=== PATIENT | female | born 1970 | race Caucasian/White ===

== ENCOUNTER 2018-07-24 01:46 | Outpatient (CLI) | payer OTHER, SELFPAY ==
--- NOTE | 2018-07-24 12:19 | DI.MAMMO_ITS ---
SYMPTOM/DIAGNOSIS: SCREENING, Z12.31 MAMMOGRAMS: Mammograms were interpreted according to the usual protocol including computer analysis with CAD system, tomosynthesis and C view imaging. The breast tissue is heterogeneously radiodense which lowers the sensitivity of the study. There is no dominant mass. When compare with the previous examination,the possibility of interval development of a small area of nodularity in the medial portion of the right breast is raised. This finding is suggested only on the craniocaudad projection. Further assessment of this patient with a craniocaudad compression spot film and ultrasound is recommended for further review. IMPRESSION: Category 0, question interval development of a small right breast nodule. Follow up evaluation with compression spot film and ultrasound is suggested. Breast density, category C. MQSA ASSESSMENT OF FINDINGS: Incomplete: Needs additional imaging evaluation. Category 0. Patient will receive a letter notifying them of these results. Bi-RADS category C. The breasts are heterogeneously dense, which may obscure small masses.
== END 2018-07-24 02:06 ==
PROVIDERS: PCP Specialist/Technologist Athletic Trainer; Visit Provider Specialist/Technologist Athletic Trainer
DX: Z12.31 Encounter for screening mammogram for malignant neoplasm of breast (principal); R92.8 Other abnormal and inconclusive findings on diagnostic imaging of breast
CPT/HCPCS: 77063; 77067

== ENCOUNTER 2018-08-07 01:37 | Outpatient (CLI) | payer OTHER, SELFPAY ==
--- NOTE | 2018-08-07 09:14 | DI.COMBO_ITS ---
SYMPTOM/DIAGNOSIS: F/U MAMMO, RT BREAST NODULE RIGHT BREAST ADDITIONAL VIEWS AND RIGHT BREAST ULTRASOUND: Additional images are interpreted according to the usual protocol including tomosynthesis and 2D imaging. Spot compression CC and MLO views were performed of the superior and posterior aspects of the right breast for a small area of nodularity. The margins are circumscribed. The findings likely represent an intramammary lymph node. Right breast ultrasound shows a small cyst in the upper inner quadrant 4 cm. from the nipple which does not correspond to the mammographic nodule. IMPRESSION: Category 2, negative mammogram with benign findings. Yearly screening mammography is recommended. SA ASSESSMENT OF FINDINGS: Negative with benign findings. Category 2. Patient will receive a letter notifying them of these results. Bi-RADS category C. The breasts are heterogeneously dense, which may obscure small masses.
== END 2018-08-07 01:57 ==
PROVIDERS: PCP Specialist/Technologist Athletic Trainer; Visit Provider Nurse Practitioner Women's Health
DX: Z12.31 Encounter for screening mammogram for malignant neoplasm of breast (principal); R92.8 Other abnormal and inconclusive findings on diagnostic imaging of breast; R59.0 Localized enlarged lymph nodes; N60.01 Solitary cyst of right breast
CPT/HCPCS: 76642; 77063; 77067

== ENCOUNTER 2019-05-05 18:18 | Outpatient (REF) | payer OTHER, SELFPAY ==
[2019-05-05 20:51] LABS: TSH 3.44 uIU/mL (0.36-3.74)
[2019-05-05 21:05] LABS: Vitamin D 25 Total 24.5 ng/ml (30-100)
== END 2019-05-05 18:38 ==
LOC: NCHCN 18:18
PROVIDERS: PCP Specialist/Technologist Athletic Trainer; Visit Provider Nurse Practitioner Family
DX: R45.4 Irritability and anger (principal); R42 Dizziness and giddiness; F32.9 Major depressive disorder, single episode, unspecified
CPT/HCPCS: 82306; 84443

== ENCOUNTER 2019-08-26 01:58 | Outpatient (CLI) | payer OTHER, SELFPAY ==
--- NOTE | 2019-08-26 13:06 | DI.MAMMO_ITS ---
EXAM: MG MAMMO SCREENING CLINICAL HISTORY: SCREENING, Z12.31 TECHNIQUE: Mammograms were interpreted according to the usual protocol including computer analysis w [employer] CAD system, tomosynthesis and C-view imaging. COMPARISON: Current examination is compared with previous examinations including July 2018 FINDINGS: The breasts are heterogeneously dense. No dominant mass or clumped microcalcification is identified in either breast. Current examination is compared with previous examinations including July 2018 and there has been no gross interval change in appearance in comparison with the previous studies. IMPRESSION: No specific evidence of malignancy at this time. Routine screening examinations are suggested at yea rly intervals in this age group according the ACS/ACR guidelines. Category 1, breast density categor y C. BI-RADS Cat 1 - Negative Breast Density - Category C - Heterogeneously dense
== END 2019-08-26 02:18 ==
PROVIDERS: PCP Nurse Practitioner Family; Visit Provider Nurse Practitioner Women's Health
DX: Z12.31 Encounter for screening mammogram for malignant neoplasm of breast (principal)
CPT/HCPCS: 77063; 77067

== ENCOUNTER 2020-10-11 02:02 | Outpatient (CLI) | payer OTHER, SELFPAY ==
--- NOTE | 2020-10-11 | DI.MAMMO_ITS ---
EXAM: MAMMO SCREENING CLINICAL HISTORY: SCREENING, Z12.31. TECHNIQUE: Bilateral full field digital CC and MLO mammographic images were obtained with 3D tomosyn thesis and utilizing computer aided detection (CAD). COMPARISON: Prior mammograms dating back to 2015, the most recent being August 2019. Prior limited right breast ultrasound performed 08/07/2018 was reviewed. FINDINGS: Fibroglandular tissue is again noted be moderately dense, this decreasing the sensitivity of the mamm ogram for finding hidden underlying lesions. In the right breast there is a 16 x 11 millimeter noncalcified lobulated nodule located 8 cm in from the nipple, slightly lateral of center. In addition, there is a subtle suggestion of a possible 2nd similar size nodule located more medially, both of these findings best evident on 3D MLO imaging. Br east ultrasound recommended There are no malignant-appearing microcalcification groups in these regions or elsewhere in either br east. There is no significant architectural distortion nor skin thickening-retraction. IMPRESSION: Right breast nodules. Right breast additional mammographic views plus breast ultrasound recommended. BI-RADS Category 0 - Assessment Incomplete: Need additional imaging evaluation Breast Density - Category C - Heterogeneously dense Breast density Category C or D implies that the patient has dense breast tissue. Dense breast tissue can make it harder to find cancer on a mammogram. Dense breast tissue is also associated with an incr eased risk of breast cancer. This information about the result of the mammogram report was provided to the patient to raise their awareness. Use this report when you speak with the patient about their risks for breast cancer, which includes their family history. At that time, you may recommend additional screening tests (Ultrasoun d or MRI) as these tests may add significant information. A negative radiographic report should not delay biopsy if a dominant or clinically suspicious mass is present. Up to ten percent of cancers are not identified on mammography. A negative report may reinforce clinical impression. Adenosis and dense breasts may obscure an underlying neoplasm. False positive reports average 6 to 10%. Patient will receive a letter notifying them of these results.
== END 2020-10-11 02:22 ==
PROVIDERS: PCP Nurse Practitioner Family; Visit Provider Obstetrics & Gynecology
DX: Z12.31 Encounter for screening mammogram for malignant neoplasm of breast (principal); R92.8 Other abnormal and inconclusive findings on diagnostic imaging of breast
CPT/HCPCS: 77063; 77067

== ENCOUNTER 2020-10-14 09:37 | Outpatient (REF) | payer OTHER, SELFPAY ==
[2020-10-14 15:58] LABS: Calculated LDL 152 mg/dL (<100); Cholesterol 232 mg/dL (<200); Glucose 103 mg/dL (74-106); HDL Cholesterol 67 mg/dL (40-60); Triglyceride 69 mg/dL (<150)
== END 2020-10-14 09:38 | disposition home or self-care (01) ==
LOC: NCHCN 09:37
PROVIDERS: PCP Nurse Practitioner Family; Visit Provider Nurse Practitioner Family
DX: Z00.00 Encounter for general adult medical examination without abnormal findings (principal)
CPT/HCPCS: 80061; 82947

== ENCOUNTER 2020-11-02 00:59 | Outpatient (CLI) | payer OTHER, SELFPAY ==
--- NOTE | 2020-11-02 | DI.US_ITS ---
Exam(s) US NEEDLE LOCAL BREAST WO RAD EXAM: ULTRASOUND GUIDED CORE BX OF RT BREAST MASS COMPARISON: No exams were available for comparison TECHNIQUE: Ultrasound performed using standard protocol. FINDINGS: Sonography was provided for Dr. Rose during the performance of a right breast biopsy. Please ref er to the procedure report for complete details. DATA REPOSITORY:
--- NOTE | 2020-11-02 09:20 | BREAST_PTH ---
PATIENT: Kristan Scruggs LOC: [facility] U#:[id number] AGE/SX: 50/F ROOM: RE11/02/[address]: Mariana Rose MD : 1970 BED: DIS: 11/02/2020 SPEC #: [id number] RECD: 11/02/20 13:03 STATUS: MICHAEL NOBLE #: [id number] ABHI: 11/02/20 09:[address]: Mariana Rose DEPT: Surgical Specimen RECD BY: Trinh John ENTERED: 11/02/20 13:04 SP TYPE: Breast OTHR DR: Sheeba Avila Tissues: 1 - BREAST BX NEEDLE Procedures: GROSS AND MICRO LEVEL 4 Comments: [id number]
--- NOTE | 2020-11-02 09:57 | HPE_ITS ---
Date of service: 11/02/20 Time of Service: 09:00 Assessment and Plan Assessment and plan (1) Mass of right breast on mammogram: Status: Acute Assessment and plan: Ms. Scruggs is a pleasant female who underwent mammogram and ultrasound. She was noted to have a mass in her right breast on mammogram. Ultrasound showed a mass at 9:00. Although most likely benign the radiologist did not feel that they could exclude malignancy. Ultrasound-guided biopsy was recommended. She was also noted to have a small fibroadenoma in the left breast at the 3 o'clock position. They recommend follow-up in 6 months for this. Ultrasound-guided core needle biopsy was discussed with the patient. Risks, benefits and complications were reviewed. Questions were entertained and answered to her satisfaction and she wished to proceed. Complications include but are not limited to bleeding, infection, bruising, need for further biopsy. Please see operative note I spent 30 minutes in reviewing the record, seeing the patient and documenting in the medical record. History of Present Illness Narrative: Mrs Scruggs is a pleasant 50-year-old female who underwent a routine mammogram followed by an ultrasound for a lesion in her right breast. I reviewed the ultrasound images prior to seeing the patient over in radiology. EXAM: US BREAST RT COMPLETE CLINICAL HISTORY: BREAST MASS TECHNIQUE: Complete ultrasound of the right breast was performed including all 4 quadrants, the retroareolar region, and the ipsilateral axilla. COMPARISON: Prior mammograms were reviewed. FINDINGS: At the 9 o'clock position there is a solid lobulated nodule measuring approximately 1.8 x 0.8 cm, correspond to the finding on the mammogram. Exhibits neutral and slightly decreased through transmission. May represent fibroadenoma but cannot exclude malignancy. Ultrasound-guided biopsy is recommended No other significant focal findings in the 4 quadrants nor in the retroareolar region No ipsilateral axillary adenopathy. IMPRESSION: At the 9 o'clock position of the right breast there is a solid lobulated nodule which should undergo ultrasound-guided core biopsy. At the 3 o'clock position of the opposite-left breast there is a more benign- appearing finding which is either microcyst or smaller fibroadenoma. This can be followed in 6 months. Appropriate follow-up is US guided core biopsy of the right breast 9 o'clock position nodule. Findings and recommendations were discussed by myself with the patient today. The patient does not have any family history of breast cancer that she is aware of. She has not noted any nipple discharge or changes in the skin. She tells me that her breasts are lumpy and she has a hard time doing self breast exams because of this. She has never had biopsies prior to this. Review of Systems Constitutional Constitutional: Denies fever(s), Denies headache(s) and Denies weight loss Eyes Eyes: Denies change in vision ENT Ears, Nose, Mouth, and Throat: Denies change in voice, Denies headache(s) and Denies hoarseness Cardiovascular Cardiovascular: Denies chest pain, Denies irregular heart rhythm, Denies palpitations and Denies dyspnea Respiratory Respiratory: Denies cough and Denies dyspnea Gastrointestinal Gastrointestinal: Reports system reviewed and no additional complaints, except as documented Genitourinary Genitourinary: Reports system reviewed and no additional complaints, except as documented Musculoskeletal Musculoskeletal: Reports system reviewed and no additional complaints, except as documented Integumentary/Breasts Skin/Breast: Reports as per HPI Neurologic Neurologic: Denies headache(s) Endocrine Endocrine: Denies palpitations [facility] Medical History (Updated 11/02/20 @ 10:01 by Mariana Rose MD) Contact allergic reaction Depression Dizziness Epistaxis Exertional shortness of breath Foot pain Heart murmur Hemangioma of liver Irritability Neuropathic pain Overweight Rosacea Shoulder pain Skin tag Social History Smoking risk assessment performed?: No Meds Allergies and Home Medications Allergies Allergy/AdvReac Type Severity Reaction Status Date / Time pineapple Allergy Mild none noted Verified 09/29/20 14:25 on referral Home Medications Medication Instructions Recorded Confirmed Type meclizine 25 mg tablet 25 mg PO TID 09/29/20 History metronidazole 0.75 % topical cream 1 applic TOPICAL BID 09/29/20 History Exam Const General: cooperative, comfortable and no acute distress Orientation: alert and oriented x3 HENMT Head: normocephalic and atraumatic Chest Chest: normal inspection of the chest Breast inspection: normal inspection of the breasts Breast palpation: normal palpation of the breasts and no axillary lymphadenopathy
--- NOTE | 2020-11-02 10:03 | W.PM.OP ---
Date of service: 11/02/20 Time of Service: 09:30 Operative Note Operative Note DATE OF PROCEDURE: 11/02/20 PRE-OP DIAGNOSIS: Right Breast mass POST-OP DIAGNOSIS: same PROCEDURE: Core needle biopsy of right Breast mass under US guidence SURGEON: Mariana Rose ANESTHESIA TYPE: Local By Surgeon (1% Lidocaine with epi) ESTIMATED BLOOD LOSS: 3 PATHOLOGY: other (Core needle tissue) COMPLICATIONS: None Patient was transported to: no change Patient's condition: stable Procedure Description: After informed consent was obtained the patient was placed in a supine position. Us was done of the right Breast and the lesion was localized by the US tech. The skin was cleaned with alcohol and infiltrated with the above local anesthetic. The skin was then prepped. An incision was made with an 11 blade. Using a 14 gauge core needle 2 specimens were removed under US guidence and placed on telfa and placed in formalin. The skin was cleaned and dried and a band aid was applied. The patient tolerated the procedure well and there were no immediate complications.
== END 2020-11-02 01:19 ==
PROVIDERS: PCP Nurse Practitioner Family; Visit Provider Surgery
DX: N64.89 Other specified disorders of breast (principal)
CPT/HCPCS: 19083; 88305; 76942

== ENCOUNTER 2021-10-26 01:57 | Outpatient (CLI) | payer OTHER, SELFPAY ==
--- NOTE | 2021-10-26 15:15 | DI.MAMMO_ITS ---
Exam(s) US BREAST LT COMPLETE MG MAMMO SCREENING EXAM: MG MAMMO SCREENING CLINICAL HISTORY: SCREENING, Z12.39, PREVENTATIVE CARE, Z00.00. TECHNIQUE: Craniocaudal and mediolateral oblique Full Field Digital Mammography views with Computer Aided Diagnosis followed by Tomosynthesis and breast ultrasound. COMPARISON: US US BREAST LT COMPLETE from 10/13/2020 US US BREAST LT COMPLETE from 04/29/2021 US US BREAST LT COMPLETE from 10/26/2021 Mammograms from 2015 through 2020 FINDINGS: Mammography/Tomosynthesis: Left breast: Masses/Architectural Distortion: None seen. Microcalcifictions: No suspicious pleomorphic-type are seen. Skin Thickening/Nipple Retraction: None. Right breast: Masses/Architectural Distortion: Stable circumscribed nodule adjacent biopsy clip upper-outer quadran t. Microcalcifictions: No suspicious pleomorphic-type are seen. Skin Thickening/Nipple Retraction: None. Left breast US: Echotexture: Normal appearance of the glandular tissue. Shadowing: No suspicious foci. Cyst: None. Solid lesions: smoothly marginated ovoid, hypoechoic nodule measuring 8 x 3 by 5 millimeters which m ay have decreased in size slightly when compared the previous exam. Ductal dilation: None. IMPRESSION: 1. No evidence of malignancy is noted. 2. Unless there is more urgent need, follow-up screening mammography is recommended in 1 year 3. The findings were discussed with the patient on the date of the examination. BI-RADS Category 2 - Benign Findings Breast Density - Category C - Heterogeneously dense Breast density category C or D implies that the patient has dense breast tissue. Dense breast tissue is very common and is not abnormal but dense breast tissue can make it harder to find cancer on a ma mmogram. Also, dense breast tissue may increase their breast cancer risk. This information about the result of the mammogram report was provided to the patient to raise their awareness. Use this report when you speak with the patient about their risks for breast cancer, which includes their family hist ory. At that time, you may recommend for more screening tests (Ultrasound or MRI) as they might be us eful based on their risk. A negative radiographic report should not delay biopsy if a dominant or clinically suspicious mass is present. Up to ten percent of cancers are not identified on mammography. A negative report may reinforce clinical impression. Adenosis and dense breasts may obscure an underlying neoplasm. False positive reports average 6 to 10%. Patient will receive a letter notifying them of these results.
== END 2021-10-26 02:17 ==
PROVIDERS: PCP Nurse Practitioner Family; Visit Provider Nurse Practitioner Family
DX: Z00.00 Encounter for general adult medical examination without abnormal findings (principal); Z12.31 Encounter for screening mammogram for malignant neoplasm of breast; N60.82 Other benign mammary dysplasias of left breast
CPT/HCPCS: 77063; 77067

== ENCOUNTER 2021-11-09 08:47 | Outpatient (REF) | payer OTHER, SELFPAY ==
[2021-11-09 16:02] LABS: Calculated LDL 167 mg/dL (<100); Cholesterol 263 mg/dL (<200); Glucose 96 mg/dL (74-106); HDL Cholesterol 85 mg/dL (40-60); Triglyceride 55 mg/dL (<150)
== END 2021-11-09 08:48 | disposition home or self-care (01) ==
LOC: NCHCN 08:47
PROVIDERS: PCP Nurse Practitioner Family; Visit Provider Nurse Practitioner Family
DX: Z00.00 Encounter for general adult medical examination without abnormal findings (principal); Z13.220 Encounter for screening for lipoid disorders; Z13.1 Encounter for screening for diabetes mellitus
CPT/HCPCS: 80061; 82947

== ENCOUNTER 2022-08-30 08:49 | Outpatient (CLI) | payer BC, SELFPAY ==
[2022-08-30 11:26] LABS: D-Dimer 299 ng/mlFEU (<500)
== END 2022-08-30 08:50 | disposition home or self-care (01) ==
PROVIDERS: PCP Nurse Practitioner Family; Visit Provider Nurse Practitioner Family
DX: R22.31 Localized swelling, mass and lump, right upper limb (principal)
CPT/HCPCS: 36415; 85379

== ENCOUNTER 2022-10-27 00:22 | Outpatient (CLI) | payer BC, SELFPAY ==
--- NOTE | 2022-10-27 15:19 | DI.MAMMO_ITS ---
Exam(s) MAMMO SCREENING EXAM: MAMMO SCREENING CLINICAL HISTORY: SCREENING, Z12.31 TECHNIQUE: Mammograms were interpreted according to the usual protocol including computer analysis w [employer] CAD system, tomosynthesis and C-view imaging. COMPARISON: 2015 through 2021 FINDINGS: The breasts are composed of heterogeneously dense fibroglandular densities, Breast Density category C . No suspicious masses or suspicious microcalcifications are seen. Stable areas of circumscribed nodul arity in the upper outer quadrant and upper inner quadrant. Biopsy marker clip in upper outer quadra nt adjacent to the nodule.. No skin thickening or abnormal axillary lymph nodes are seen. There has been no significant change from prior exams. IMPRESSION: BI-RADS Cat 2 - Benign Findings Breast Density Category C, heterogeneously Dense. The mammogram demonstrates the patient's breast tissue is dense. Dense breast tissue is very common a nd is not abnormal but dense breast tissue can make it harder to find cancer on a mammogram. Also, de nse breast tissue may increase breast cancer risk. This information about the result of the mammogram report was provided to the patient to raise their awareness. Use this report when you speak with the patient about their risks for breast cancer, which includes their family history. At that time, you may recommend additional screening tests (Ultrasound or MRI) as they might be useful based on their r isk. A negative radiographic report should not delay biopsy if a dominant or clinically suspicious mass is present. Up to ten percent of cancers are not identified on mammography. A negative report may reinforce clinical impression. Adenosis and dense breasts may obscure an underlying neoplasm. False positive reports average 6 to 10%.
== END 2022-10-27 00:42 ==
LOC: DI 00:22
PROVIDERS: PCP Nurse Practitioner Family; Visit Provider Obstetrics & Gynecology
DX: Z12.31 Encounter for screening mammogram for malignant neoplasm of breast (principal)
CPT/HCPCS: 77063; 77067

== ENCOUNTER 2024-12-26 22:53 | Outpatient (REF) | payer BC, SELFPAY ==
[2024-12-26 19:40] LABS: Abs Immature Grans 0.02 10^3/uL (0.0-0.06); Absolute Basophil Count 0.06 10^3/uL (0.0-0.2); Absolute Eosinophil Count 0.12 10^3/uL (0.0-0.7); Absolute Lymphocyte Count 2.43 10^3/uL (1.2-3.4); Absolute Monocyte Count 0.48 10^3/uL (0.1-0.8); Absolute Neutrophil Count 5.23 10^3/uL (1.2-6.7); Basophils % 0.7 %; Eosinophils % 1.4 %; HCT 44.5 % (36.0-46.0); HGB 14.5 g/dL (11.2-15.7); Immature Grans % 0.2 %; Lymphocytes % 29.1 %; MCH 31.9 pg (27.0-33.0); MCHC 32.6 % (32.0-36.0); MCV 98 fL (80-95); MPV 11.1 fL (8.0-11.0); Monocytes % 5.8 %; Neutrophils % 62.8 %; Platelet Count 232 10^3/uL (130-400); RBC 4.55 10^6/uL (3.93-5.22); RDW 13.6 % (11.7-14.6); RDW-SD 50.1 fL; WBC 8.34 10^3/uL (4.4-10.8)
[2024-12-26 19:56] LABS: Hemoglobin A1C 5.3 % (<5.7)
[2024-12-26 20:22] LABS: ALT 35 U/L (14-59); AST 22 U/L (15-37); Albumin 4.2 g/dL (3.4-5.0); Alkaline Phosphatase 106 U/L (46-116); Anion Gap 7.8 mmol/L (3-11); BUN 9 mg/dL (7-18); Bilirubin, Total 0.4 mg/dL (0.2-1.0); CO2 27.2 mmol/L (21.0-32.0); CREATININE 0.6 mg/dL (0.55-1.02); Calculated LDL 189 mg/dL (<100); Chloride 104 mmol/L (98-107); Cholesterol 299 mg/dL (<200); Estimated GFR 105.94 (mL/min/1.73m2); Glucose 99 mg/dL (74-106); HDL Cholesterol 89 mg/dL (>or=50); Potassium 4.1 mmol/L (3.5-5.1); Sodium 139 mmol/L (136-145); Total Protein 7.6 g/dL (6.4-8.2); Triglyceride 106 mg/dL (<150); Vitamin D 25 Total 22 ng/mL (30-100)
[2024-12-29 10:20] LABS: Hepatitis C Ab w Rflx HCV PCR Negative (Negative)
== END 2024-12-26 22:54 | disposition home or self-care (01) ==
LOC: NCHCN 22:53
PROVIDERS: Visit Provider Family Medicine
DX: Z00.00 Encounter for general adult medical examination without abnormal findings (principal)
CPT/HCPCS: 80053; 80061; 82306; 86803; 83036; 84443; 85025

== ENCOUNTER 2025-03-30 10:49 | Day surgery (SDC) | payer BC, SELFPAY ==
[2025-03-30 10:55] VITALS: BP 144/69; PULSE 71; RESP 20; TEMP 36.4; O2SAT 100
[2025-03-30] MEDS: Lactated Ringers 500 ML 80 ML IV (11:20)
--- NOTE | 2025-03-30 11:46 | ANES.PREOP_ITS ---
General Info Date of Service Date Performed: 03/30/25 Height: 5 ft 1 in Weight: 71.9 kg Body Mass Index (BMI): 29.9 Surgical Procedure: Operation Date: 03/30/25 12:05 Proposed Procedure Side Surgeon p Colonoscopy Dipti Padilla MD Meds Allergies and Home Medications Allergies Allergy/AdvReac Type Severity Reaction Status Date / Time pineapple Allergy Intermediate lips and Verified 03/30/25 11:07 tongue sometimes tingling Home Medication ?Medication ?Instructions ?Recorded meclizine 25 mg tablet 25 mg PO TID 09/29/20 Held on 03/27/25. Instructions: Pt Stopped/Never Started metronidazole 0.75 % topical cream 1 applic topical BI D 09/29/20 [id number] fumarate 18 1 tab-cap PO DAILY 01/31 12/24 mg-FA 600 mcg-vit K 40 mcg capsule (Multi For Her) bisacodyl 5 mg tablet,delayed 5 mg PO ONCE colonscopy bowel prep 03/04/25 release (Dulcolax (bisacodyl)) #4 tabs polyethylene glycol 3350 17 238 g PO ONCE colonoscopy prep 03/04/25 gram/dose oral powder #238 grams Current Visit Medications: Current Medications Generic Name Dose Route Start Last Admin Trade Name Freq PRN Reason Stop Dose Admin Ringer's Solution 500 mls @ 80 mls/hr 03/30/25 10:00 03/30/25 11:20 IV 04/29/25 09:59 80 mls/hr PREOP CAR Administration IV Miscellaneous Supplies 1 each 03/30/25 06:00 Iv Access IV 03/30/25 23:59 DIRECTED CAR Sodium Biphosphate/Sodium Phosphate 133 - 266 ml 03/30/25 06:00 Na Phosphate Enema-Adult 133 Ml Btl ME 03/30/25 23:59 PRN PRN Sodium Chloride 0 ml 03/30/25 06:00 Normal Saline Flush 10 Ml Syr IV 03/30/25 23:59 PRN PRN Sodium Chloride 0 ml 03/30/25 06:00 Normal Saline 10 Ml Vial IJ 03/30/25 23:59 DIRECTED PRN Sterile Water 0 ml 03/30/25 06:00 Water,Injection,Sterile 10 Ml Vial IJ 03/30/25 23:59 DIRECTED PRN PFSH Active Problems Active Problems: Problem Status Onset Code Hyperlipidemia Acute E78.5 Positive colorectal cancer screening using Cologuard test Acute R19.5 Mass of right breast on mammogram Acute N63.10 Medical History Medical History Depression Heart murmur Overweight Hemangioma of liver Skin tag Rosacea Contact allergic reaction Neuropathic pain Dizziness Irritability Epistaxis Exertional shortness of breath Shoulder pain Foot pain Surgical History Surgical History History of tonsillectomy History of tubal ligation Tobacco Smoking/Tobacco Use Status: Former Tobacco Use Alcohol Alcohol Intake: current Alcohol intake frequency: holidays/special occasions only Substance Use Substance use: Never Substance use type: does not use Vital Signs and Lab Results Vital Signs Most Recent Vital Signs in EMR: Most Recent Vital Signs Temp Pulse Resp BP Pulse Ox 36.4 C L 71 20 144/69 H 100 03/30/25 10:55 03/30/25 10:55 03/30/25 10:55 03/30/25 10:55 03/30/25 10:55 Anesthesia Assessment and Plan Anesthesia History Personal History: No History of Anesthesia Complications Family History: No Family History of Anesthesia Complications Exercise Tolerance Exercise Tolerance: Metabolic Equivalents>4 Pertinent Negatives Pertinent Negatives: No Symptoms of GERD Cardiac & Pulmonary Exam Cardiac Exam: Normal S1/S2 Heart Sounds Pulmonary Exam: Clear Bilateral Breath Sounds Implantable Cardiac Device Does patient have a Pacemaker or an ICD?: No Airway Exam Known Difficult Airway: No Mallampati Class: 1 Mouth Opening: Normal (> 3cm) Thyromental Distance: Greater than 3 cm Neck Range of Motion: Full ROM Neck Circumference: Normal Teeth Condition: Normal Dentition ASA Classification ASA Score: ASA 2 Emergency Case?: No NPO Status NPO Status: NPO Clears >2 hours, Solids >8 hours Anesthesia Plan Resuscitation Status: Full Code Anesthesia Technique: General Anesthesia Airway Planned: Natural Airway Monitors Used: Standard Monitors
[2025-03-30 11:49] VITALS: BMI 29.9
--- NOTE | 2025-03-30 12:18 | ENDO_ITS ---
Date of service: 03/30/25 Time of Service: 12:18 Endoscopy Report PRE-OP DIAGNOSIS: Positive Cologuard screening test POST-OP DIAGNOSIS: same SURGEON: Dipti Padilla ANESTHESIA TYPE: General:No Airway ESTIMATED BLOOD LOSS: 0 PATHOLOGY: none sent COMPLICATIONS: None PREP: Miralax/Dulcolax (Good) PROCEDURE DESCRIPTION: Informed consent was obtained and the patient was taken to the procedure area. The patient was placed in left lateral decubitus position on the procedure table. Timeout was performed. Anesthesia was induced. A lubricated colonoscope was inserted through the anus and passed to the cecum. The cecum was identified by the ileocecal valve and the appendiceal orifice. The scope was then slowly withdrawn and the colonic and rectal mucosa examined. TI intubated and examined. It appears normal. There are no colon or rectal mass lesions, polyps, AVMs. There is no inflamma tory change. No diverticulosis was seen. The scope was retroflexed in the anorectal junction examined. Uncomplicated internal hemorrhoids present. Assessment and plan: Positive Cologuard test Normal colonoscopy. False positive Cologuard test. Next screening colonoscopy will be due in 10 years. No longer a candidate for Cologuard.
--- NOTE | 2025-03-30 12:20 | W.PM.DSUDISC ---
Date of service: 03/30/25 Discharge Plan Disposition Patient Disposition: Home Condition: Stable Discharge Details Attending Provider: Dipti Padilla Primary Care Provider: Mike Rodriguez Recommendations for Follow Up Recommended tests to be ordered by follow up provider: Normal colonoscopy, due again in 10 years. No longer candidate for Cologuard Home Meds and New Rx's Prescriptions: Discontinued bisacodyl [Dulcolax (bisacodyl)] 5 mg tablet,delayed release (DR/EC) 5 mg PO ONCE Qty: 4 0RF Rx Instructions: take per colonoscopy instructions polyethylene glycol 3350 17 gram/dose powder 238 g PO ONCE Qty: 238 0RF Rx Instructions: take per colonoscopy instructions No Action metronidazole 0.75 % cream 1 applic topical BID meclizine 25 mg tablet 25 mg PO TID Multi For Her 18 mg iron-600 mcg-40 mcg capsule 1 tab-cap PO DAILY Discharge Instructions Additional Instructions: Normal colonoscopy. Your colon and rectum are healthy with no abnormal growths or polyps. False positive Cologuard test. Next screening colonoscopy will be due in 10 years. You are no longer a candidate for Cologuard screenings. Discharge Orders Discharge Orders: Discharge Order (Routine); Ordered 03/30/25 Ordered By: Dipti Padilla DS: Diagnosis Discharge Diagnosis (1) Positive colorectal cancer screening using Cologuard test: Status: Acute
[2025-03-30 12:23] VITALS: BP 105/60; PULSE 65; RESP 16; TEMP 36.4; O2SAT 99
--- NOTE | 2025-03-30 12:48 | W.ANESPOSTOP ---
Postoperative Evaluation Date, Time and Location Date Performed: 03/30/25 Time Performed: 12:48 Patient Location: Day [facility] Unit Vital Signs Most Recent Imported Vital Signs: Most Recent Vital Signs Temp Pulse Resp BP Pulse Ox 36.4 C L 65 16 105/60 99 03/30/25 12:23 03/30/25 12:23 03/30/25 12:23 03/30/25 12:23 03/30/25 12:23 Pain Score Most Recent Pain Score: Most Recent Pain Score Pain Level 0 03/30/25 12:23 Assessment Mental Status: Awake (Alert & Oriented to Patient Baseline) Airway and Respiratory Function: Patent airway with normal (patient baseline) respiratory exam Cardiovascular Function: Hemodynamically Stable Hydration Status: Adequately Hydrated Nausea & Vomiting: No Nausea or Vomiting Pain: Pt. Denies Any Pain Peripheral Nerve Block: Patient did not receive a nerve block
== END 2025-03-30 13:05 | disposition home or self-care (01) ==
PROVIDERS: PCP Family Medicine; Visit Provider Surgery
PROC: 0DJD8ZZ Inspection of Lower Intestinal Tract, Via Natural or Artificial Opening Endoscopic (ICD-10-PCS; CPT 45378; principal; 2025-03-30 12:00)
DX: Z12.11 Encounter for screening for malignant neoplasm of colon (principal); R19.5 Other fecal abnormalities
CPT/HCPCS: 45378; J2704

== ENCOUNTER → 2025-06-10 00:19 | Outpatient (CLI) | payer BC, SELFPAY ==
--- NOTE | 2025-06-10 14:07 | DI.US_ITS ---
APPROVED REPORT EXAM: Comprehensive 2D, Doppler, and color-flow Echocardiogram Patient Location: Out-Patient Furnace Unloader: Niyah Johnson RDCS (AE) Indications: Abnormal findings heart/coronary circulation Other Information Study Quality: Adequate Conclusion Normal left ventricular wall thickness and chamber size. Ejection fraction is 60 to 65%. Wall motion is normal Normal right ventricular size and function Both atria are normal in size There are no structural valvular abnormalities Mild aortic regurgitation Estimated right ventricular systolic pressure is 26 mmHg Very mildly dilated ascending aorta 3.44 cm Wall motion Left Ventricle The left ventricle is normal size. The left ventricular systolic function is normal. The left ventricular ejection fraction is within the normal range. There is normal left ventricular wall thickness. There is normal LV segmental wall motion. There is no ventricular septal defect visualized. LVEF is 60-65%. Right Ventricle The right ventricle is normal size. The right ventricular systolic function is normal. Atria The left atrium size is normal. The right atrium size is normal. The interatrial septum is intact with no evidence for an atrial septal defect. Aortic Valve The aortic valve is normal in structure. Aortic valve is trileaflet. There is no aortic valvular stenosis. Mild aortic regurgitation. Mitral Valve The mitral valve is normal in structure. No evidence of mitral valve stenosis. Trace mitral regurgitation. Tricuspid Valve The tricuspid valve is normal in structure. There is no tricuspid valve stenosis. Trace to mild tricuspid regurgitation. The RVSP is 25.9 mmHg. Pulmonic Valve The pulmonary valve is normal in structure. There is no pulmonic valvular stenosis. Trace pulmonic regurgitation. Great Vessels The aortic root is normal in size. The ascending aorta is mildly dilated. Aortic arch is normal in caliber. IVC is normal in size and collapses >50% with inspiration. Pericardium There is no pericardial effusion. 2D Dimensions IVSD d PLAX 1.04 cm F: 0.6-1.0 Ao Root d 2.68 cm F: 2.7 - 3.3 LVPW d PLAX 1.00 cm F: 0.6 - 1.0 Ao Asc Diam d 3.44 cm F: 2.3 - 3.1 LVID d PLAX 4.30 cm F: 3.8 - 5.2 LVDs 2.84 cm F: 2.2 - 3.5 LV EF Teichholz 63.2 % FS 34.02 % LV EDV (Teich) 83.2 mL LV ESV (Teich) 30.6 mL M-Mode TAPSE 2.55 cm (M/F) >1.7 Auto EF LV EDV A4C 77.8 mL LV EDV A2C 83.7 mL LV EDV BP 81.9 mL LV ESV A4C 27.9 mL LV ESV A2C 31.3 mL LV ESV BP 29.7 mL LVEF(%) A4C 64.2 % LVEF(%) A2C 62.6 % LVEF(%) BP 63.8 % LV SV A4C 49.9 ml LV SV A2C 52.4 ml LV SV BP 52.2 ml LV CO A4C 3.5 L/min LV CO A2C 3.9 L/min LV CO BP 3.7 L/min HR A4C 70.32 BPM HR A2C 75.32 BPM LV EDV Index (BP) LA Volume LA Length A4C 4.3 cm LA Length A2C 5.6 cm LA Area A4C s 14.14 cm2 LA Area A2C s 15.19 cm2 LA Vol A4C A-L 39.68 mL LA Vol A2C A-L 35.23 mL LA Vol Biplane A-L 42.6 mL LA Vol/BSA A4C A-L LA Vol/BSA A2C A-L LA Vol/BSA BP A-L 24.9 mL/m2 LA Vol A4C MOD 36.7 mL LA Vol A2C MOD 33.1 mL LA Vol BP MOD 39.7 mL RA Volume RA Area A4C 10.5 cm2 RA ESV A4C (A-L) 22.5mL RA Vol/BSA A4C A-L RA Length A4C 4.2 cm RA ESV A4C (MOD) 20.4mL LV Diastology MV E' medial 0.113 (>0.07 m/s) MV E Vmax 0.91 (0.4-1.3 m/s) MV E/E' MED 8.02 (<14) MV A Vmax 0.75 (0.4-1.3 m/s) MV E' lateral 0.103 (>0.1 m/s) E/A Ratio 1.2 MV E/E' LAT 8.85 (<14) MV E' Average 0.108 m/s MV E/E'(average) 8.41 Aortic Valve AoV Vmax 2.17 m/s LVOT Vmax 1.60 m/s AoV Peak Grad 40.8 mmHg LVOT Peak Grad 10.2 mmHg AoV Area (Vmax) 2.30 cm2 LVOT VTI 0.321 m AoV VTI 0.477 m LVOT Mean Grad 5.9 mmHg AoV Mean [place]. 1.51 m/s LVOT SV 100.47 mL AoV Mean Grad 10.7 mmHg LVOT Diam s 1.95 cm AoV Area (VTI) 2.10 cm2 AV Regurg Peak Gr. 18.90 mmHg Velocity Ratio 0.74 AR Decel [place] 1.6m/sec2 AR DT 2446 msec AR PHT 709 msec AR Vmax 3.96 m/s Mitral Valve MV DT 160 (160-240 msec) MV Vmax TIPS 0.78 m/s MV Mean Grad 1.1 (<2mmHg) MV VTI 0.203 m Pulmonary Valve PV Vmax 1.24 (0.5-1.5 m/s) RVOT Vmax 1.05 m/s PV Peak Grad 6.2 mmHg RVOT Peak Gr. 4.4 mmHg PV Mean [place] 0.87 m/s RVOT VTI 0.221 m PV Mean Grad 3.5 mmHg RVOT Mean Gr. 2.4 mmHg Tricuspid Valve RA Pressure 3.00 mmHg TR Vmax 2.39 m/s TV S' 0.18 m/s TR Peak Grad 22.9 mmHg RVSP (TR) 25.9 mmHg
== END ==
LOC: DI 00:19
PROVIDERS: PCP Family Medicine; Visit Provider Family Medicine
DX: R93.1 Abnormal findings on diagnostic imaging of heart and coronary circulation (principal); I35.1 Nonrheumatic aortic (valve) insufficiency
CPT/HCPCS: 93306